=== PATIENT | female | born 1945 | race Caucasian/White ===

== ENCOUNTER 2024-09-09 09:26 | Emergency (ER) | payer MEDICARE, SELFPAY ==
[2024-09-09] VITALS (13 sets, daily range): BP systolic 129–171; BP diastolic 36–106; PULSE 55–73; RESP 14–20; TEMP 36.4; O2SAT 95–100
--- NOTE | ~2024-09-09 | XR_ITS ---
EXAMINATION: XR wrist RT min 3V DATE: 09/09/2024 10:52 INDICATION: Right wrist injury and swelling. TECHNIQUE: 4 views of right wrist were obtained. COMPARISON: None. FINDINGS: There is a comminuted fracture of distal radius with involvement of the distal articular marquis rface and distal radioulnar joint. The main distal fracture fragment demonstrates impaction, 6 mm robert samantha displacement, and dorsal angulation. There is 34 degrees dorsal tilt of the distal articular surf aristides. There is a nondisplaced avulsion fracture of the ulnar styloid. 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 IMPRESSION: 1. Comminuted fracture of distal radius. 2. Avulsion fracture of the ulnar styloid. Reviewed, dictated and finalized at location A. AGE REINSPECTOR
--- NOTE | ~2024-09-09 | XR_ITS ---
XR wrist RT 2V Ordering provider: Sarah Whitney PA-C History: . post reduction RT WRIST . Comparison: September 09, 2024 FINDINGS: BONES: Fracture in the distal metaphysis of the right radius with improved alignment. Cast is noted a round the forearm. JOINT SPACES: Normal. SOFT TISSUES: Normal. IMPRESSION: fracture in the distal right radius with improved alignment. Status post placement in a cast. Reviewed, dictated and finalized at location A. AL MOLD MAKER IMPRESSION: fracture in the distal right radius with improved alignment. Status post place ment in a cast.
--- NOTE | 2024-09-09 11:37 | ED_ITS ---
HPI - Extremity Injury (Upper) General Chief Complaint: Extremity Injury, Upper <Sarah Whitney PA-C - Last Filed: 09/09/24 17:05> Stated Complaint: R hand injury <Sarah Whitney PA-C - Last Filed: 09/09/24 17:05> Time Seen by Provider: 09/09/24 10:57 <Sarah Whitney PA-C - Last Filed: 09/09/24 17:05> Source: patient <Sarah Whitney PA-C - Last Filed: 09/09/24 17:05> Mode of arrival: ambulatory <Sarah Whitney PA-C - Last Filed: 09/09/24 17:05> Limitations: no limitations <Sarah Whitney PA-C - Last Filed: 09/09/24 17:05> History of Present Illness HPI narrative: This is a 79-year-old female that presents to the emergency department for right wrist injury. Sustained 2 days ago. Reports she slipped and fell on ice. Caught herself with her right wrist. She did not hit her head or lose consciousness. Has had pain, swelling and bruising in the wrist since. Reports decreased range of motion. Denies numbness. <Sarah Whitney PA-C - Last Filed: 09/09/24 17:05> Related Data Allergies/Adverse Reactions: Allergies Allergy/AdvReac Type Severity Reaction Status Date / Time No Known Allergies Allergy Verified 09/09/24 09:30 <Sarah Whitney PA-C - Last Filed: 09/09/24 17:05> Review of Systems Review of Systems: CONSTITUTIONAL: Denies fever MUSCULOSKELETAL: Reports joint pain, and myalgia. NEUROLOGIC: Denies numbness <Sarah Whitney PA-C - Last Filed: 09/09/24 17:05> All systems reviewed & are unremarkable except as noted in HPI and below <Sarah Whitney PA-C - Last Filed: 09/09/24 17:05> [facility] Past Medical History Medical History: Medical History (Updated 09/09/24 @ 13:57 by Sarah Whitney PA-C) History of hyperlipidemia History of hypertension <Sarah Whitney PA-C - Last Filed: 09/09/24 17:05> Social History Social History: Social History (Updated 09/09/24 @ 11:38 by Sarah Whitney PA-C) Smoking status: Never smoker <Sarah Whitney PA-C - Last Filed: 09/09/24 17:05> Exam Narrative: GENERAL: Well-appearing, well-nourished, and in no acute distress. HEAD: Normocephalic, atraumatic. EYES: EOMI. EXTREMITIES: Normal range of motion, except decreased active ROM in the right wrist with obvious deformity, swelling and bruising. Normal radial pulse. Normal sensation SKIN: Warm, dry, no rash. NEURO: No focal deficits. Alert and oriented x3. Normal gait PSYCH: Normal mood and affect <Sarah Whitney PA-C - Last Filed: 09/09/24 17:05> Course Course Emergency Course: patient and family updated on recommendation by orthopedics. They prefer she be seen at [facility] <Sarah Whitney PA-C - Last Filed: 09/09/24 17:05> HAIRSPRING I INSPECTOR/PA Physician Supervision For this patient encounter, I reviewed the HAIRSPRING I INSPECTOR or PA documentation, treatment plan, and medical decision making; and I had [id number] time with this patient. <Mayito Sparrow MD - Last Filed: 09/09/24 18:42> Consultations Consultation #1: Spoke with Dr. Nuno, recommends transfer to trauma center for higher level of care <Sarah Whitney PA-C - Last Filed: 09/09/24 17:05> Date: 09/09/24 <Sarah Whitney PA-C - Last Filed: 09/09/24 17:05> Consultation #2: Spoke with Dr. Vila about patient and workup who accepts transfer to the ER at [facility] <Sarah Whitney PA-C - Last Filed: 09/09/24 17:05> Date: 09/09/24 <Sarah Whitney PA-C - Last Filed: 09/09/24 17:05> Vital Signs Vital signs: Vital Signs Temperature 97.5 F L 09/09/24 09:28 Pulse Rate 67 09/09/24 09:28 Respiratory Rate 18 09/09/24 09:28 Blood Pressure 167/59 H 09/09/24 09:28 Pulse Oximetry 100 09/09/24 09:28 Oxygen Delivery Room Air 09/09/24 09:28 Temperature 97.5 F L 09/09/24 09:28 Pulse Rate 60 09/09/24 13:45 Respiratory Rate 14 09/09/24 13:45 Blood Pressure 129/62 09/09/24 13:01 Pulse Oximetry 95 09/09/24 13:30 Oxygen Delivery Room Air 09/09/24 09:28 <aSrah Whitney PA-C - Last Filed: 09/09/24 17:05> Vital Signs Temperature 97.5 F L 09/09/24 09:28 Pulse Rate 67 09/09/24 09:28 Respiratory Rate 18 09/09/24 09:28 Blood Pressure 167/59 H 09/09/24 09:28 Pulse Oximetry 100 09/09/24 09:28 Oxygen Delivery Room Air 09/09/24 09:28 Temperature 97.5 F L 09/09/24 09:28 Pulse Rate 60 09/09/24 13:45 Respiratory Rate 14 09/09/24 13:45 Blood Pressure 129/62 09/09/24 13:01 Pulse Oximetry 95 09/09/24 13:30 Oxygen Delivery Room Air 09/09/24 09:28 <Mayito Sparrow MD - Last Filed: 09/09/24 18:42> Procedures Orthopedic Joint Reduction Joint #1: Orthopedic Joint Reduction Date: 09/09/24 <Sarah Whitney PA-C - Last Filed: 09/09/24 17:05> Orthopedic Joint Reduction Time: 13:56 <Sarah Whitney PA-C - Last Filed: 09/09/24 17:05> Side: right <Sarah Whitney PA-C - Last Filed: 09/09/24 17:05> Joint Reduction Location: wrist <Sarah Whitney PA-C - Last Filed: 09/09/24 17:05> Analgesia: hematoma block and other (Fentanyl) <Sarah Whitney PA-C - Last Filed: 09/09/24 17:05> Pre-Procedure Neuro Vascular Exam: normal <RENETTA Rodriguez Last Filed: 09/09/24 17:05> Local Anesthesia: lidocaine 1% <RENETTA Rodriguez Last Filed: 09/09/24 17:05> Amount of anesthesic used (mL): 3 <RENETTA Rodriguez Last Filed: 09/09/24 17:05> Technique used: direct manipulation <Sarah Whitney PA-C - Last Filed: 09/09/24 17:05> Post-reduction neuro exam: intact <RENETTA Rodriguez Last Filed: 09/09/24 17:05> Post-reduction vascular: intact <RENETTA Rodriguez Last Filed: 09/09/24 17:05> Post Reduction X-Ray Obtained: Yes <RENETTA Rodriguez Last Filed: 09/09/24 17:05> Post Reduction X-Ray Results: reduced <RENETTA Rodriguez Last Filed: 09/09/24 17:05> Splint Applied: Yes <RENETTA Rodriguez Last Filed: 09/09/24 17:05> Patient Tolerated Procedure: well and no complications <RENETTA Rodriguez Last Filed: 09/09/24 17:05> MDM - Extremity Injury (Upper) MDM Narrative Medical decision making narrative: Patient presents to the emergency department after a fall 2 days ago with right wrist pain and swelling. Patient neurovascularly intact. Right wrist x- ray shows a comminuted fracture of the distal radius as well as avulsion fracture of the ulnar styloid. This was reduced, post reduction x-ray showing improvement in alignment. Patient placed in a splint. Spoke with Dr. Nuno, recommends transfer to trauma center for higher level of care. Spoke with Dr. Vila about patient and workup who accepts transfer to the ER at [facility] <RENETTA Rodriguez Last Filed: 09/09/24 17:05> Differential Diagnosis Differential diagnosis: Likely sprain and strain of wrist and other (Wrist fracture) <RENETTA Rodriguez Last Filed: 09/09/24 17:05> Imaging Data Radiologist's impression: ITS Impressions Wrist X-Ray 09/09/24 10:52 IMPRESSION: 1. Comminuted fracture of distal radius. 2. Avulsion fracture of the ulnar styloid. Wrist X-Ray 09/09/24 12:43 IMPRESSION: fracture in the distal right radius with improved alignment. Status post placement in a cast. <Sarah Whitney PA-C - Last Filed: 09/09/24 17:05> Critical Care Time Critical Care Time Critical Care Time: No <Sarah Whitney PA-C - Last Filed: 09/09/24 17:05> Discharge Plan Discharge Clinical Impression: Closed fracture of right distal radius Qualifiers: Encounter type: initial encounter Fracture morphology: unspecified fracture morphology Qualified Code(s): S52.501A - Unspecified fracture of the lower end of right radius, initial encounter for closed fracture <Sarah Whitney PA-C - Last Filed: 09/09/24 17:05> Patient Disposition: Acute Care Hospital <Sarah Whitney PA-C - Last Filed: 09/09/24 17:05> Condition: Stable <Sarah Whitney PA-C - Last Filed: 09/09/24 17:05> Patient Language: Salvadorean <RENETTA Rodriguez Last Filed: 09/09/24 17:05> Follow-up/Referrals: UNKNOWN,DOCTOR [Primary Care Provider] - <RENETTA Rodriguez Last Filed: 09/09/24 17:05>
[2024-09-09] MEDS: fentaNYL CITRATE INJ (*CRX) 100 MCG/2 ML VIAL 50 MCG IV PUSH ×2 (12:16→12:26)
--- NOTE | 2024-09-09 12:35 | PC.NURSE ---
RUE reduced by Devonte AMADO. X-ray at bedside for repeat imaging after splint applied. Pt/family updated.
== END 2024-09-09 14:36 | disposition short-term general hospital (02) ==
PROVIDERS: Emergency Provider Physician Assistant
DX: S52.501A Unspecified fracture of the lower end of right radius, initial encounter for closed fracture (principal); I10 Essential (primary) hypertension; E78.5 Hyperlipidemia, unspecified; W00.0XXA Fall on same level due to ice and snow, initial encounter
CPT/HCPCS: 25605; 73100; 73110; 96374; 96376; 99285; J3010